=== PATIENT | male | born 2000 | race Hispanic/Latino ===

== ENCOUNTER → 2018-08-01 | Day surgery (SDC) | payer OTHER ==
[~2018-08-01] MED LIST: BUPIVACAINE HCL 0.5% 10ML MPF VIAL INJ ONE; BUPIVACAINE HCL 0.5% INJ 30 ML VIAL INJ ONE; CEFAZOLIN SOD 1 GM/NS 50ML 50 ML IV ONE; DEXAMETHASONE SOD PHOS INJ 4 MG/ML VIAL ONE; FENTANYL CITRATE/PF 100MCG/2 ML INJ ONE; KETOROLAC TROMETHAMINE 30 MG/ML VIAL ONE; LIDOCAINE HCL 2% LOCAL INJ 5 ML SDV VIAL INJ ONE; MIDAZOLAM HCL 2 MG/2 ML VIAL ONE; MUPIROCIN 2% OINT 22 GM TUBE ONE; ONDANSETRON HCL INJ 2MG/ML 2ML 2 MG/ML VIAL ONE; PROPOFOL IV EMULSION 10 MG/ML 20 ML VIAL ONE; SEVOFLURANE INHAL SOLN 250 ML PEN BTL ONE; ULTRACET TABLE1 EACH PO
[2018-08-01 13:00] VITALS: BP 125/68
--- NOTE | 2018-08-02 16:28 | Operative Report ---
DATE OF PROCEDURE: 08/01/2018 SURGEON: Angel Baez MD NURSE EXECUTIVE: Connor Hernandez PA-C. PREOPERATIVE DIAGNOSIS: Right 4th metacarpal shaft fracture. POSTOPERATIVE DIAGNOSIS: Right 4th metacarpal shaft fracture. PROCEDURE: Open reduction and internal fixation of right 4th metacarpal. INDICATIONS: The patient is a 17-year-old gentleman, who has a shortened oblique unstable fracture of his right 4th metacarpal shaft. The findings and options have been discussed with the patient and his mother. We have recommended open reduction and internal fixation to restore length and provide stability. The risks and benefits of the procedure have been explained. He and his mother both state they understand and wish to proceed. PROCEDURE IN DETAIL: The patient was brought to the operating room and placed under general anesthetic. His right upper extremity was prepped and draped in a sterile manner. A preoperative time-out was performed. The extremity was exsanguinated and a proximal tourniquet was briefly inflated to 250 mmHg. An incision over the dorsal aspect of the 4th metacarpal shaft was made. The extensor tendons were protected and retracted. The interosseous muscles were elevated and the fracture site was carefully identified. A reduction was performed. The fracture was fixed with a 5-hole mini-frag plate. Intraoperative x-rays confirmed near anatomic reduction and good positioning of the hardware. The wound was irrigated and closed. He was placed into an ulnar gutter splint. He was extubated and transported to the recovery room in stable condition. Angel Baez MD DR/NILDA /[id number]
== END | disposition home or self-care (01) ==
LOC: OR 08:46
PROVIDERS: ATTEND Specialist
DX: S62.324A Displaced fracture of shaft of fourth metacarpal bone, right hand, initial encounter for closed fracture (principal); W01.0XXA Fall on same level from slipping, tripping and stumbling without subsequent striking against object, initial encounter; Y92.096 Garden or yard of other non-institutional residence as the place of occurrence of the external cause; Y99.0 Civilian activity done for income or pay; Z88.1 Allergy status to other antibiotic agents
CPT/HCPCS: 26615; C1713 ×2; J0690; J1100; J1885; J2001; J2250; J2405; J2704; 76000

== ENCOUNTER 2020-12-18 00:28 | Emergency (ER) | payer OTHER ==
[~2020-12-18] VITALS: Ht 180.3 cm; Wt 70.3 kg
[~2020-12-18 00:28] MED LIST changes: -BUPIVACAINE HCL 0.5% 10ML MPF VIAL INJ ONE; -BUPIVACAINE HCL 0.5% INJ 30 ML VIAL INJ ONE; -CEFAZOLIN SOD 1 GM/NS 50ML 50 ML IV ONE; -DEXAMETHASONE SOD PHOS INJ 4 MG/ML VIAL ONE; -FENTANYL CITRATE/PF 100MCG/2 ML INJ ONE; -KETOROLAC TROMETHAMINE 30 MG/ML VIAL ONE; -LIDOCAINE HCL 2% LOCAL INJ 5 ML SDV VIAL INJ ONE; -MIDAZOLAM HCL 2 MG/2 ML VIAL ONE; -MUPIROCIN 2% OINT 22 GM TUBE ONE; -ONDANSETRON HCL INJ 2MG/ML 2ML 2 MG/ML VIAL ONE; -PROPOFOL IV EMULSION 10 MG/ML 20 ML VIAL ONE; -SEVOFLURANE INHAL SOLN 250 ML PEN BTL ONE
[2020-12-18] MEDS ORDERED: LIDOCAINE HCL 1% LOCAL INJ 20 ML VIAL INJ ONE (01:00)
[2020-12-18] MEDS ORDERED: TETANUS/DIPHTHERIA TOX ADULT 0.5 ML SYR IM ONE (01:00)
[2020-12-18] MEDS ORDERED: LIDOCAINE HCL 2% LOCAL 20 ML VIAL ONE (01:06)
== END 2020-12-18 01:35 | disposition home or self-care (01) ==
LOC: ER 01:25
DX: S91.114A Laceration without foreign body of right lesser toe(s) without damage to nail, initial encounter (principal)
CPT/HCPCS: 12001; 90471; 90714; 99283; J2001